=== PATIENT | female | born 1980 | race Caucasian/White ===

== ENCOUNTER → 2020-06-26 | Outpatient (CLI) | payer OTHER ==
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
== END ==
LOC: M WHC 14:54
PROVIDERS: ATTEND Nurse Practitioner Primary Care
DX: Z12.31 Encounter for screening mammogram for malignant neoplasm of breast (principal); Z98.82 Breast implant status

== ENCOUNTER 2020-11-23 10:18 | Emergency (ER) | payer OTHER ==
[~2020-11-23] VITALS: Ht 160 cm; Wt 62.3 kg
[2020-11-23] MEDS ORDERED: NS 1,000 ML IV ONE (11:00)
[2020-11-23] MEDS ORDERED: MORPHINE 4 MG/ML 1ML VIAL/SYRINGE (J2270) IV ONE (11:00)
[2020-11-23] MEDS ORDERED: ONDANSETRON 4MG/2ML VIAL IV ONE (11:00)
--- NOTE | 2020-11-23 12:16 | REP ---
INDICATION: fall down 15 steps COMPARISON: None. TECHNIQUE: Axial noncontrast images from the skull base to the thoracic inlet with coronal and sagittal re-formations This CT examination was performed using the following dose reduction techniques: Automated exposure control, adjustment of mA and/or kv according to the patient's size, and use of iterative reconstruction technique. FINDINGS: Normal alignment and lordosis is maintained. Cervical vertebral bodies including transverse processes and spinous processes are intact and there is no evidence for acute fracture / compression injury or subluxation. Spinal canal is patent. Posterior elements are intact. Paravertebral soft tissues are normal. IMPRESSION: Normal noncontrast cervical spine CT. No evidence for acute pathology or trauma/injury. <Electronically signed by Wellington Ambrose > 11/23/20 [id number]
--- NOTE | 2020-11-23 12:16 | REP ---
INDICATION: fall down 15 steps COMPARISON: None. TECHNIQUE: Axial noncontrast images from the skull base to the vertex with coronal reformations. This CT examination was performed using the following dose reduction techniques: Automated exposure control, adjustment of mA and/or kv according to the patient's size, and use of iterative reconstruction technique. FINDINGS: The ventricles, sulci, and cisterns are normal in position and appearance. Nielson-white differentiation is maintained. No acute intracranial hemorrhage, mass/mass effect, pathology or trauma/injury. No evidence for acute infarction. No extra-axial fluid collection. Calvarium is intact. Paranasal sinuses and mastoid air cells are clear. IMPRESSION: Normal noncontrast head CT. No evidence for acute intracranial pathology or trauma/injury. <Electronically signed by Wellington Ambrose > 11/23/20 [id number]
[2020-11-23] MEDS ORDERED: MORPHINE 2 MG/ML 1ML VIAL (J2270) IV ONE (12:30)
--- NOTE | 2020-11-23 12:31 | REP ---
INDICATION: fall, left shoulder pain. COMPARISON: None. TECHNIQUE: SINGLE frontal VIEW OF THE CHEST WAS PERFORMED. FINDINGS: There is no acute infiltrate. Lungs are clear. Heart is normal in size. Mediastinal silhouette is unremarkable. There is a fracture of the distal end of the left clavicle with inferior displacement. IMPRESSION: NO ACUTE PULMONARY DISEASE.Fracture distal end of left clavicle with inferior displacement. <Electronically signed by Jamal Nielson > 11/23/20 [id number]
--- NOTE | 2020-11-23 12:32 | REP ---
INDICATION: fall, left shoulder pain COMPARISON: None. TECHNIQUE: Three views left shoulder. FINDINGS: There is fracture of the distal end of the left clavicle with inferior displacement. The distal end of the clavicle is still well aligned with the acromion. No other acute fracture or dislocation is visualized. IMPRESSION: Fracture distal end left clavicle with inferior displacement. AC joint well aligned. <Electronically signed by Jamal Nielson > 11/23/20 [id number]
--- NOTE | 2020-11-23 12:33 | REP ---
INDICATION: fall, left shoulder pain COMPARISON: None. TECHNIQUE: Two views left humerus. FINDINGS: Fracture of the distal end of the left clavicle with inferior displacement. No other acute fracture or dislocation is seen. IMPRESSION: Fracture distal end left clavicle with inferior displacement. <Electronically signed by Jamal Nielson > 11/23/20 [id number]
[2020-11-23 13:15] VITALS: BP 118/74
== END 2020-11-23 13:15 | disposition home or self-care (01) ==
LOC: M ED 10:18
DX: S09.90XA Unspecified injury of head, initial encounter (principal); S42.032A Displaced fracture of lateral end of left clavicle, initial encounter for closed fracture; S16.1XXA Strain of muscle, fascia and tendon at neck level, initial encounter; W10.9XXA Fall (on) (from) unspecified stairs and steps, initial encounter; Y92.099 Unspecified place in other non-institutional residence as the place of occurrence of the external cause; Y93.9 Activity, unspecified; Y99.9 Unspecified external cause status
CPT/HCPCS: 70450; 71045; 72125; 73030; 73060; 84702; 96361; 96374; 96375; 96376; 99284; J2270; J2405

== ENCOUNTER 2020-11-29 20:26 | Emergency (ER) | payer OTHER ==
[~2020-11-29] VITALS: Ht 160 cm; Wt 64.4 kg
[2020-11-29] MEDS ORDERED: ACET-838 PO (20:34)
[2020-11-29] MEDS ORDERED: NAPR-885 PO (20:34)
--- OUTSIDE RECORDS SUMMARY | 2020-11-29 20:34 | CCD ---
Author Author [facility] Organization [facility] Address Unknown Phone Unavailable Care Team Providers Care Chicken Boner Name Role Phone Mandappa, Josefa CASAC Unavailable Unavailable Mandappa, Josefa CASAC Unavailable Unavailable Mandappa, Josefa CASAC Unavailable Unavailable Mandappa, Josefa CASAC Unavailable Unavailable Re-disclosure Warning The records that you are about to access may contain information from federally-assisted alcohol or drug abuse programs. If such information is present, then the following federally mandated warning applies: This information has been disclosed to you from records protected by federal confidentiality rules (42 CFR part 2). The federal rules prohibit you from making any further disclosure of this information unless further disclosure is expressly permitted by the written consent of the person to whom it pertains or as otherwise permitted by 42 CFR part 2. A general authorization for the release of medical or other information is NOT sufficient for this purpose. The Federal rules restrict any use of the information to criminally investigate or prosecute any alcohol or drug abuse patient.The records that you are about to access may contain highly sensitive health information, the redisclosure of which is protected by Article 27-F of the [facility] Public Health law. If you continue you may have access to information: Regarding HIV / AIDS; Provided by facilities licensed or operated by the [facility] Office of Mental Health; or Provided by the [facility] Office for People With Developmental Disabilities. If such information is present, then the following [facility] mandated warning applies: This information has been disclosed to you from confidential records which are protected by state law. State law prohibits you from making any further disclosure of this information without the specific written consent of the person to whom it pertains, or as otherwise permitted by law. Any unauthorized further disclosure in violation of state law may result in a fine or penitentiary sentence or both. A general authorization for the release of medical or other information is NOT sufficient authorization for further disc losure. Family History Family Member Name Family Member Gender Family Member Status Date o f Status Description Data Source(s) Unknown Unknown Problem [facility] ([facility]) Encounters Encounter Providers Location Date Indications Data Source(s ) Recurring Patient Referrer: Josefa Lloyd CASAC 11/27/2020 09:40:28 AM EST [facility] Insurance Providers Payer name Policy type / Coverage type Policy ID Covered libertarian ID Covered libertarian's relationship to molina Policy Molina Plan Information [employer] [id number] 2 [id number] [employer] F Pending SPOUSE Pending [employer] Commercial [id number] Family Dependent [id number] Results ID Date Data Source [id number] 09/15/2020 12:00:00 AM EST [facility] Name Value Range Interpretation Code Description Data Carlita rce(s) Supporting Document(s) SARS coronavirus 2 RNA [Presence] in Res piratory specimen by ANTONIO with probe detection [facility] This lab was ordered by Cami Carter and reported by [facility]. Procedure
--- OUTSIDE RECORDS SUMMARY | 2020-11-29 21:30 | CCD ---
Author Author [facility] Organization [facility] Address Unknown Phone Unavailable Care Team Providers Care Photo Editor Name Role Phone Mandappa, Josefa CASAC Unavailable [...] is protected by Article 27-F of the [facility] Public Health law. If you continue you may have access to information: Regarding HIV / AIDS; Provided by facilities licensed or operated by the [facility] Office of Mental Health; or Provided by the [facility] Office for People With Developmental Disabilities. If such information is present, then the following [facility] mandated warning applies: This information has [...] law may result in a fine or mcfp sentence or both. A general authorization for [...] Josefa Lloyd CASAC 11/27/2020 09:40:28 AM EST [facility] Insurance Providers Payer name Policy type / Coverage type Policy ID Covered alliance party ID Covered alliance party's relationship to molina Policy Molina Plan Information [id number] HUMANA [employer] [id number] 2 [id number] [employer] Hum[employer] F Pending SPOUSE Pending [employer] Commercial [id number] Family Dependent [id number] Results ID Date Data Source [id number] 09/15/2020 12:00:00 AM EST [facility] Name Value Range Interpretation Code Description Data Carlita rce(s) Supporting Document(s) SARS coronavirus 2 RNA [Presence] in Res piratory specimen by ANTONIO with probe detection [facility] This lab was ordered by Cami Carter and reported by [facility]. Procedure
[2020-11-29] MEDS ORDERED: PERCOCET 5MG/325MG TAB PO ONE (22:15)
--- NOTE | 2020-11-29 22:34 | REPVR ---
PROCEDURE INFORMATION: Exam: XR Chest, 1 View Exam date and time: 11/29/2020 10:10 PM Age: 40 years old Clinical indication: Fever TECHNIQUE: Imaging protocol: XR of the chest Views: 1 view. COMPARISON: [place] Chest, 1 view 11/23/2020 12:08 PM FINDINGS: Lungs: The lungs appear clear. Pleural space: There is no evidence of pneumothorax. There is no evidence of pleural effusion. Heart/Mediastinum: The heart is normal in size. Bones/joints: There is no evidence of bony abnormality. IMPRESSION: Clear appearing lungs. Electronically signed by: Wong Ma On 11/29/2020 22:34:24 PM
[2020-11-29] MEDS ORDERED: PERC5TAB12 PO (22:40)
[2020-11-29 22:43] VITALS: BP 121/83
== END 2020-11-29 22:47 | disposition home or self-care (01) ==
LOC: M ED 20:26
DX: R50.9 Fever, unspecified (principal)

== ENCOUNTER 2024-09-04 10:35 | Observation (INO) | payer OTHER ==
[~2024-09-04] VITALS: Ht 157.5 cm; Wt 61.1 kg
[~2024-09-04 10:35] MED LIST: ACET32TAB PO; NAPR-885 PO; PERC5TAB12 PO
[2024-09-04 11:46] LABS: HEMATOCRIT 40.2 % (36.0-47.0); HEMOGLOBIN 12.8 g/dl (12.0-15.5); MEAN CORPUSCULAR HEMOGLOBIN 25.1 pg (27.0-33.0); MEAN CORPUSCULAR HGB CONC 31.8 g/dl (32.0-36.5); PLATELET COUNT, AUTOMATED 268 10^3/uL (150-450); RED BLOOD COUNT 5.09 10^6/uL (4.00-5.40); WHITE BLOOD COUNT 6.3 10^3/uL (4.0-10.0)
[2024-09-04 11:59] LABS: HCG, SERUM QUALITATIVE NEGATIVE (NEGATIVE)
[2024-09-04 12:05] LABS: LIPASE 44 U/L (12-53)
[2024-09-04 12:07] LABS: ALKALINE PHOSPHATASE 66 U/L (46-116); ALT/SGPT 15 U/L (7.0-40); AST/SGOT < 8 U/L (<34); BILIRUBIN,DIRECT 0.1 MG/DL (<0.4); BILIRUBIN,TOTAL 0.3 MG/DL (0.3-1.2); BLOOD UREA NITROGEN 17 MG/DL (9-23); CALCIUM LEVEL 9.6 MG/DL (8.5-10.1); CARBON DIOXIDE LEVEL 26 MMOL/L (20-31); CHLORIDE LEVEL 108 MMOL/L (98-107); CREATININE FOR GFR 0.86 MG/DL (0.55-1.30); GLOMERULAR FILTRATION RATE > 60.0 (>58); GLUCOSE, FASTING 85 MG/DL (60-100); SODIUM LEVEL 139 MMOL/L (136-145); TOTAL PROTEIN 7.6 G/DL (5.7-8.2)
[2024-09-04 12:45] LABS: ATYPICAL LYMPH 10 % (0-5); EOSINOPHILS 4 % (0-3); LYMPHOCYTES 20 % (16-44); NEUTROPHILS 44 % (28-66)
[2024-09-04 12:46] LABS: HYPOCHROMASIA 1+; MICROCYTOSIS 1+
[2024-09-04 12:47] LABS: PLATELET ESTIMATE NORMAL (NORMAL)
[2024-09-04] MEDS: KETOROLAC 30 MG/ML 1ML VIAL IV ONE (14:50)
[2024-09-04] MEDS: GASTROGRAFIN SOLUTION 30ML PO SCH (14:50)
[2024-09-04] MEDS: ONDANSETRON 4MG 2ML VIAL IV ONE (14:50)
[2024-09-04] MEDS ORDERED: ISOVUE-370 76% 100ML VIAL As Ordered ONE (16:17)
[2024-09-04] MEDS ORDERED: AZITHROMYCIN 250MG TABLET PO ONE (18:15)
[2024-09-04] MEDS: CIPROFLOXACIN 400 MG in IV 1 EA IV ONE (18:58)
[2024-09-04] MEDS: NS 1,000 ML IV ONE (18:58)
[2024-09-04] MEDS ORDERED: MOM 30ML SUSPENSION UDC PO PRN (19:55)
[2024-09-04] MEDS ORDERED: HOME MED LIST COMPLETE! XX SCH (19:55)
[2024-09-04] MEDS ORDERED: MAALOX 30 ML SUSP *UDC PO PRN (19:55)
[2024-09-04] MEDS ORDERED: ACETAMINOPHEN 325 MG TAB PO PRN (19:55)
[2024-09-04] MEDS ORDERED: ONDANSETRON 4MG ORAL DISINTEGRATING TAB PO PRN (20:10)
[2024-09-04 20:46] LABS: INR 1.15; PARTIAL THROMBOPLASTIN TIME 31.5 SECONDS (24.8-34.2); PROTHROMBIN TIME 14.3 SECONDS (12.5-14.5)
[2024-09-04 22:00] VITALS: BP 105/68; TEMP 98.4; O2SAT 98
[2024-09-05 05:15] VITALS: BP 106/67; TEMP 98.1; O2SAT 97
[2024-09-05] MEDS: CIPROFLOXACIN 500MG TABLET PO SCH (05:35)
[2024-09-05 06:18] LABS: BASO % 0.2 % (0.0-1.0); EOS # 0.4 10^3/uL (0.0-0.5); EOS % 7.2 % (0.0-3.0); HEMATOCRIT 33.6 % (36.0-47.0); LYMPH # 1.8 10^3/uL (1.5-5.0); LYMPH % 31.9 % (24.0-44.0); MEAN CORPUSCULAR HEMOGLOBIN 25.6 pg (27.0-33.0); MEAN CORPUSCULAR HGB CONC 32.7 g/dl (32.0-36.5); MEAN CORPUSCULAR VOLUME 78.3 fl (80.0-96.0); MONO # 0.6 10^3/uL (0.0-0.8); MONO % 9.6 % (2.0-8.0); NEUTROPHILS # 2.9 10^3/uL (1.5-8.5); NEUTROPHILS % 50.7 % (36.0-66.0); PLATELET COUNT, AUTOMATED 246 10^3/uL (150-450); RED BLOOD COUNT 4.29 10^6/uL (4.00-5.40); WHITE BLOOD COUNT 5.7 10^3/uL (4.0-10.0)
[2024-09-05] MEDS: NS 1,000 ML IV ONE (07:45)
[2024-09-05] MEDS ORDERED: LEVO1TAB40 PO (07:57)
[2024-09-05] MEDS ORDERED: BACI1CAP PO (07:57)
[2024-09-05] MEDS: LACTOBACILLUS ACIDOPHILUS CAP (BACID) PO SCH (08:00)
[2024-09-05] MEDS: ACETAMINOPHEN *IV* 1,000 MG in IV 1 EA IV ONE (08:30)
[2024-09-05] MEDS: FIORICET TAB PO ONE (08:30)
[2024-09-05] MEDS: METOCLOPRAMIDE INJ 10MG/2ML VIAL IV ONE (08:30)
[2024-09-05] MEDS: NS 1,500 ML IV ONE (09:00)
[2024-09-05] MEDS: ENOXAPARIN 40MG/0.4ML SYRINGE (J1650 PER 10MG) SC SCH (09:00)
[2024-09-05] MEDS: LevoFLOXacin 750 MG TABLET PO ONE (11:01)
== END 2024-09-05 11:15 | disposition home or self-care (01) ==
LOC: M ED 10:35 → M ED INP 19:53 → M MS5PR 22:00
PROVIDERS: ADMIT Student in an Organized Health Care Education/Training Program; ATTEND Student in an Organized Health Care Education/Training Program
DX: A04.1 Enterotoxigenic Escherichia coli infection (principal); D72.825 Bandemia; E87.8 Other disorders of electrolyte and fluid balance, not elsewhere classified; R51.9 Headache, unspecified; R10.9 Unspecified abdominal pain; Z90.89 Acquired absence of other organs; Z98.82 Breast implant status; Z98.890 Other specified postprocedural states
CPT/HCPCS: 36415; 74177; 80048; 80076; 81001; 83605; 83690; 83735; 84145; 84703; 85025; 85610; 85730; 87040; 87507; 96365; 96375; 99284; J0744; J1885; J2405; J2765; Q9963; Q9967

== ENCOUNTER → 2025-09-18 | Outpatient (CLI) | payer OTHER ==
[~2025-09-18] MED LIST changes: +BACI1CAP PO; +LEVO1TAB40 PO
== END ==
LOC: M WHC 07:50
PROVIDERS: ATTEND Student in an Organized Health Care Education/Training Program
DX: Z12.31 Encounter for screening mammogram for malignant neoplasm of breast (principal); R92.313 Mammographic fatty tissue density, bilateral breasts